=== PATIENT | female | born 1965 | race Caucasian/White ===

== ENCOUNTER → 2018-02-24 07:36 | Outpatient (CLI) | payer OTHER, SELFPAY ==
--- NOTE | 2018-02-24 07:39 | BI_ITS ---
MAMMOGRAPHY - BILATERAL SCREENING REASON FOR EXAM: Female, 52 years old. Routine annual screening examination. PERTINENT HISTORY: Non-contributory. TECHNIQUE: Digital bilateral breast yolanda (3D mammographic acquisition) in the CC and MLO projections. 2-D mediolateral oblique (MLO) and craniocaudad (CC) views of both breasts were obtained. CAD: Full Field Digital Mammography with Computer Added Detection was performed. COMPARISON: Comparison is made with prior study dated February 11, 2017 and January 28, 2016. FINDINGS: Breast Composition: The breasts are heterogeneously dense, which may obscure small masses. There are no dominant masses or suspicious calcifications. No other significant abnormalities are identified. There has been no significant change since the prior study. BI/SCREENING MAMM (CAD), BILAT IMPRESSION: Stable bilateral screening mammogram. Yearly follow-up mammogram recommended. (A) ASSESSMENT CATEGORY: BIRADS Category 1: Negative. A letter regarding these results will be sent to the patient by the facility within 30 days. Approximately 10% of breast cancers are not detected by mammography. A normal mammogram should not delay biopsy of a clinically suspicious abnormality. [id number] Electronically Signed: Lane Mendoza MD at 8:56 EDT Tel [phone], Service support ,
== END ==
PROVIDERS: Family Provider Internal Medicine; PCP Internal Medicine; Visit Provider Obstetrics & Gynecology
DX: Z12.31 Encounter for screening mammogram for malignant neoplasm of breast (principal)
CPT/HCPCS: 77063; 77067

== ENCOUNTER 2018-08-14 08:05 | Day surgery (SDC) | payer OTHER, SELFPAY ==
[2018-08-09 11:36] LABS: Hematocrit 39.7 % (37-47); Hemoglobin 13.3 g/dl (12.0-15.0); Mean Corp Hgb Conc 33.5 g/gl (32-36); Mean Corpuscular Volume 92.5 fL (81-99); Mean Platelet Vol. 11.7 fl (6.2-12.0); Platelet Count 193 K/mm3 (150-450); RBC Distribution Width CV 13.8 % (11.6-14.6); RBC Distribution Width SD 45.6 fl (35.1-43.9); Red Blood Count 4.29 M/mm3 (4.2-5.4); Scan Indicated on CBC? Y/N NO; White Blood Count 6.1 K/mm3 (4.4-11.0)
[2018-08-09 11:42] LABS: International Normalized Ratio 1.1; Prothrombin Time (Protime)PT. 13.9 SECONDS (11.7-14.9)
[2018-08-09 11:43] LABS: Partial Thromboplast Time 27.8 Seconds (24.1-36.2)
[2018-08-09 12:41] LABS: Pregnancy, Serum, hCG Quali. NEGATIVE Negative (0-9 Nonpreg)
[2018-08-09 14:10] LABS: EST Glomerular Filtration Rate 81 mL/min (>60); Est Glom Filt Rate - Afr Amer 98 mL/min (>60); Thyroid Stim Hormone (TSH) 1.45 uIU/mL (0.358-3.74)
--- NOTE | 2018-08-13 16:01 | PCM.HP.BLA ---
History and Physical Date of Admission: 08/14/18 Surgical History and Physical Jacqueline Bull, a 53 year old female 5 0 4 0 5, presents for LAVH/BSO on August 14, 2018 at 10:45. -- Menorrhagia; Submucous Fibroids -- heavy menses which began months ago. Jacqueline claims it started gradually It is located in the vagina. Jacqueline characterizes the quality hemorrhage. Severity is severe and worsening; u/s shows submucous fibroids; Additional comments are: bleeds thru clothing; recently lasted more than 2 weeks. MEDICATIONS HISTORY: Patient is also takin. Xyzal 5 mg Tablet, 1 tab daily 2. Maxalt 5 mg tablet, As Directed prn 3. Synthroid 25 mcg tablet, 1 PO QD 4. Inderal LA 60 mg capsule,extended release, daily prn 5. iron 325 mg (65 mg iron) tablet, One pill by mouth once a day with menses 6. Vitamin D2 50,000 unit capsule, One pill by mouth once a week ALLERGIES: penicillin, Penicillins and Intolerance-unknown Infections - ? chix. pox Illnesses - no serious past illnesses Accidents - no injuries of consequence Hospitalizations - Childbirth and see surgery Review of Systems: GENERAL - Denies fever, or chills SKIN - Denies skin changes EYES - Denies visual changes EARS - Denies difficulty hearing NOSE - Denies nasal congestion or bleeding MOUTH - Denies sore throat or difficulty swallowing NECK - Denies pain or swelling RESPIRATORY - Denies shortness of breath or wheezing CARDIOVASCULAR - Denies palpitations or chest pain GASTROINTESTINAL - Denies nausea, vomiting, diarrhea, constipation GENITOURINARY - Denies dysuria, frequency of urination, incontinence of urine MUSCULOSKELETAL - Denies joint or muscle pain NEUROLOGICAL - Denies localized numbness or weakness PSYCHIATRIC - Denies depression or anxiety ENDOCRINE - Denies heat or cold intolerance, weight loss or gain HEMATO-IMMUNOLOGIC - Denies excesive bleeding with cuts SOCIAL HISTORY: Alcohol Use - RARELY Smoking - denies smoking Diet - no particular diet Lifestyle - moderate stress lifestyle, active lifestyle and Exercise - active Seat Belt Use - always 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 Mother: depression. MENSTRUAL HISTORY: LMP Known?- DefiniteAmount/Duration - 6 days, Regularity - Regular, Frequency - monthly days, LMP - 07/28/18, Age Onset Menarche - 15 PAST PREGNANCIES: Total Pregnancies - 9; Full Term Pregnancies - 5; Premature - 0; Abortions, Induced - 2; Abortions, Spontaneous - 2; Ectopics - 0; Multiple Births - 0; Living Children - 5 SURGICAL HISTORY: 1. 03/22/2001 D and [place] ; Tiffanie Anderson M.D. - missed PHYSICAL EXAM BP- 132/84 Sitting, Right arm, regular cuff Weight- 151.63118 lbs Height- 64 inch BMI:25.97 CONSTITUTIONAL - NAD, well nourished, and well developed SKIN - No rash, lesions, or ulcers HEENT - Normocephalic, PERRLA, EOMI NECK - No nodes, no nuchal rigidity and thyroid normal size and texture LYMPH NODES - Palpation of lymph nodes in neck and groins within normal limits LUNGS - CTA x2 without wheezes, crackles or rales CARDIAC - Regular rate and rhythm without rubs, murmurs, or gallops BREAST - No dominant masses, no tenderness, no axillary adenopathy, no nipple discharge, no skin changes ABDOMEN - Without hepatosplenomegaly, distention, masses, rebound, or guarding; normal bowel sounds; no hernias EXTREMITIES - No edema or calf tenderness NEUROLOGICAL - Cranial nerves II-XII grossly intact PSYCHIATRIC - A and O to time, place, person, mood and affect DETAILED PELVIC EXAM External Genitial Vagina - non-tender without lesions Urethra/Urethral Meatus - non-tender Bladder - non-tender Vagina - vaginal espinal are pink and moist without loss of rugae and no evidence of atropy Cervix - without cervical motion tenderness and has normal size and features without evident lesions Uterus - multiparous size 6 cm & wt 75-125 g Adnexa - clear without masses or tenderness ASSESSMENT/PLAN: 1. Menorrhagia Discussed options for treatment at length including HTA versus LAVH/BSO. Since submucous fibroids present HTA not a good option. Plan LAVH/BSO. EMBx ok. Recent TSH normal. Discussed RBAs and all questions answered.
[2018-08-14] VITALS (13 sets, daily range): BP systolic 99–134; BP diastolic 56–96; PULSE 50–77; RESP 14–16; TEMP 36.1–37.4; O2SAT 94–100; BMI 26.9
[2018-08-14] MEDS: Scopolamine 1mg/72hr Patch 1 PATCH TRANSDERM. (07:00)
[2018-08-14 08:32] LABS: Internal QC Validated? YES +Cl - CLEAR BKGD; Pregnancy, Urine Negative Negative
[2018-08-14 09:05] LABS: Bedside Glucose 80 mg/dL (70-110)
[2018-08-14] MEDS: Acetaminophen 500 MG Tablet 1000 MG PO (09:13)
[2018-08-14] MEDS: Gabapentin 600 MG Tablet PO (09:14)
[2018-08-14] MEDS: Lactated Ringers 1,000 ML 40 ML IV (09:20)
--- NOTE | 2018-08-14 10:00 | HYST_PTH ---
PATIENT: DOC RANDALL [place] [facility] [place][id number] AGE/SX: 53/F ROOM: RE08/14/[address]: Dr. Julio Ly MD : [id number] BED: DIS: 08/15/2018 SPEC #: [id number] RECD: 08/14/18 14:35 STATUS: MURRAY AGUILARWade #: [id number] NICOLÁS: 08/14/18 10:[address]: Julio Ly DEPT: SURGICAL PATHOLOGY RECD BY: Dejah Vick ENTERED: 08/14/18 14:52 SP TYPE: HYSTERECT OTHR DR: Dr. Emani Vazquez MD Tissues: Uterus, NOS Procedures: Surgery Specimen Level V HEADER OPERATION: Hysterectomy, lap-assisted vaginal, salpingectomy, ERAS PRE-OP DIAGNOSIS: Menorrhagia TISSUE SUBMITTED: Uterus, bilateral ovaries and tubes MICROSCOPIC DIAGNOSIS Uterus, hysterectomy: Cervix - squamous metaplasia, nabothian cysts and mild chronic inflammation. Endometrium - transition endometrium. Myometrium - adenomyosis. Right fallopian tube - no pathologic change. Right ovary - corpus luteal cysts and corpora albicantia. Left fallopian tube - no pathologic change. Left ovary - hemorrhagic corpus luteal cysts and a single follicular cyst. AM:sheldon 08/15/18 MICROSCOPIC DESCRIPTION Slides are reviewed. GROSS DESCRIPTION Received in fixative is one container labeled with the patient's name and designated uterus, bilateral ovaries and tubes. The specimen consists of a hysterectomy specimen consisting of uterus with cervix and attached right fallopian tube and ovary and detached left fallopian tube and ovary. The uterus with cervix weighs 184 gm and measures 11 x 8 x 6 cm. The serosal surface is schroeder, glistening. A few instrumentation enriquez are noted. The ectocervical mucosa is unremarkable. The external os is slit-like in contour. The endocervical canal measures 3.5 cm in length and the endocervical mucosa is unremarkable. The triangular endometrial cavity measures 6 cm in length and up to 4 cm in width. The endometrium is schroeder, glistening without any mass lesion and measures 0.2 cm in thickness. Sections of the uterine wall reveal trabeculated cut surfaces suspicious for adenomyosis. The uterine wall measures up to 3 cm in thickness. The right fallopian tube measures up to 7 cm in length and up to 0.6 cm in diameter. The fimbrial end is identified. No tubo-ovarian adhesions are noted. The soft to cystic right ovary measures 3 x 2 x 1 cm. Sections reveal a hemorrhagic cyst measuring 1.2 cm in greatest dimension and the second cyst filled with clear fluid also measuring 1 cm in greatest dimension. The left fallopian tube measures 7 cm in length and up to 0.7 cm in diameter. It is similar appearance to right. The soft to cystic left ovary measures 2.5 x 2 x 1 cm. Sections reveal a hemorrhagic cyst measuring 2 cm in greatest dimension. A few smaller cysts filled with clear fluid are also noted measuring 0.3 cm in greatest dimension. Whipped Topping Mixer sections are submitted in ten cassettes as follows: 1 - anterior cervix, 2 - posterior cervix, 3 & 4 - anterior uterine wall, 5 & 6 - posterior uterine wall, 7 - right fallopian tube, 8 - right ovary, 9 - left fallopian tube, 10 - left ovary. / OSEAS:sheldon 08/14/18 TC:5 CPT: 75813
[2018-08-14] MEDS: Lidocaine/D5W 2,000 MG/250 ML IV.SOLN 2000 MG (10:13)
--- NOTE | 2018-08-14 10:14 | PCM.OP.BLANK ---
Operative Report Date of Procedure: 08/14/18 Surgeon: Julio Ly MD, [facility] Rework Machine Operator: GENARO Tineo Anesthesia: Kris Murillo CRNA Type of anesthesia: General endotracheal Preoperative Diagnosis: Menorrhagia and Submucous Fibroids Postoperative Diagnosis: Menorrhagia and Submucous Fibroids Procedure: Laparoscopic-Assisted Vaginal Hysterectomy and Bilateral Salpingoophrectomy Findings: 12 cm uterus with normal-appearing fallopian tubes and ovaries. Normal pelvis. Indications: This is a 53-year-old multiparous patient who is been having problems with extremely heavy menses. Ultrasound showed submucous fibroids. Conservative measures have not been helpful. Given this the patient desires that we proceed the above procedure. She has been counseled regarding the risk and indications of this procedure including the possibility of bleeding, infection, and injury to surrounding structures such as bowel bladder. All questions were answered. Procedure: Patient was taken to the operating room where after induction of general anesthesia she was placed in the dorsal lithotomy position and prepped and draped in the usual sterile fashion. A Carvajal catheter was placed. Anterior cervix was grasped with a tenaculum and anterior cervix circumscribed with cautery on a setting of 35 W coagulation. Anterior vaginal mucosa was undermined and a 4 x 4 raytec sponge was placed to identify the peritoneal reflection of the bladder intraperitoneally. Conn cannula was placed and attention was turned towards the laparoscopic portion of the procedure. Approximately 20 cc of half percent ropivacaine was injected subumbilically, suprapubically, and midway between. A 5 mm bladeless trocar was introduced subumbilically and intraperitoneal placement confirmed. CO2 insufflation was completed and, under direct visualization, a 5 mm bladeless trocar was introduced suprapubically. A 5 mm bladeless trocar was introduced midway between these 2 ports. Enseal was used to cauterize the infundibulopelvic ligaments to the level of the round ligament and the Raytec placed in the vagina was visualized with the peritoneum already opened over the sponge. Under direct visualization a narrow [place] was placed vaginally; CO2 gas was stopped and attention turned toward the vaginal hysterectomy portion of the procedure. The posterior aspect of the cervix was circumscribed with a knife and posterior peritoneum easily entered. Progressive bites were taken on either side of the uterine cervix and each pedicle ligated with 0 Vicryl suture. Superior pedicles were ligated ?2 with 0 Vicryl suture and sidewall pedicles were examined and oversewn where necessary with [id number] 0 Vicryl suture to achieve hemostasis. Posterior vaginal cuff was oversewn with running locked 0 Vicryl suture. Hemostasis was noted and peritoneum was closed in a pursestring fashion incorporating superior pedicles into the stitch. Vaginal cuff was then closed front to back with interrupted [id number] 0 Vicryl suture. Hemostasis was noted. Attention was turned toward the laparoscopic portion of the procedure. CO2 insufflation was completed and pedicles were examined and noted to be hemostatic. The pelvis was copiously irrigated with saline solution and right ureter was noted to peristalsis. Laparoscopic instruments with as much CO2 gas as possible was removed and skin incisions were closed with interrupted 4-0 Monocryl suture. Steri-Strips were placed across the incisions. Patient tolerated the procedure well was taken to recovery room in satisfactory condition; sponge instrument and needle counts were all reportedly correct. Estimated blood loss for the case was 200 cc. Cefotan 2 g IV was given prior to beginning the operative procedure. There were no apparent complications of the surgery. Specimen to pathology was uterus and bilateral fallopian tubes and ovaries.
--- NOTE | 2018-08-14 10:16 | DCINST_ITS ---
Discharge Diet: No Restrictions Discharge Activity: Return to Normal Activity, May Not Drive - while taking narcotic pain medications., May Shower May resume sexual activity in: 6-8 weeks Call your doctor if your incision/area has: Continuous Slow Oozing, Sudden Increased Bleeding, Increased Pain/ Swelling, Increased Redness, Foul Smelling Discharge Call your doctor if you observe: Fever of 101 or Higher, Inability to urinate, Inability to have a bowel movement, Using more than one pad per hour Allergies/Adverse Reactions: Allergies Penicillins Allergy (Verified 08/07/18 08:58) Rash Medications to take at Discharge Rizatriptan Benzoate [Maxalt] 10 mg PO .X1 PRN PRN 07/26/13 Levocetirizine Dihydrochloride [Xyzal] 5 mg PO DAILY 02/08/16 Levothyroxine Sodium [Levoxyl] 75 mcg PO DAILY 02/08/16 Propranolol HCl [Inderal LA] 60 mg PO DAILY PRN 02/08/16 Cyanocobalamin [Vitamin B12] 1,000 mcg PO DAILY@0800 08/07/18 Ergocalciferol [Vitamin D] 50,000 unit PO BRAMBILA 08/07/18 Iron Carbonyl [Feosol] 65 mg PO PRN PRN 08/07/18 Docusate Sodium [Colace] 100 mg PO BID PRN PRN #60 cap 08/14/18 Estradiol 1 mg PO DAILY #100 tab 08/14/18 Oxycodone [Oxyir] 5 mg PO Q6H PRN PRN 7 Days #20 tab 08/14/18 The following prescriptions were given: Oxycodone [Oxyir] 5 mg PO Q6H PRN PRN 7 Days #20 tab PRN Reason: Severe Pain (-07/19) Docusate Sodium [Colace] 100 mg PO BID PRN PRN #60 cap PRN Reason: Constipation Estradiol 1 mg PO DAILY #100 tab Primary Care Physician: Emani Vazquez MD [Primary Care Provider] - Test Results: Test results from this visit will be discussed in further detail at your follow- up appointment, if applicable. Please Follow Up With: Julio Ly MD When: 2-3 weeks
[2018-08-14] MEDS: Ropivacaine 0.5% 30 ML Vial (12:06)
[2018-08-14] MEDS: Ketorolac 30 MG/ML Syringe IV ×2 (13:52→20:04)
[2018-08-14] MEDS: Dextrose 5%-Lactated Ringers 1,000 ML 150 ML IV ×2 (16:05→22:17)
[2018-08-14] MEDS: Enoxaparin 30 MG/0.3 ML Syringe SC (18:13)
--- NOTE | 2018-08-14 22:21 | NUR.TO.PHY ---
pt drowsy at this time and unable to keep eyes open,not safe to sit at side of bed or stand.
[2018-08-15] MEDS: Ketorolac 30 MG/ML Syringe IV ×2 (02:24→07:29)
[2018-08-15 02:30] VITALS: BP 107/45; PULSE 78; RESP 16; TEMP 36.7; O2SAT 94
[2018-08-15] MEDS: Levothyroxine 75 MCG Tablet PO (06:10)
[2018-08-15] MEDS: oxyCODONE 5 MG Tablet PO (06:11)
[2018-08-15 06:58] LABS: Hematocrit 32.1 % (37-47); Hemoglobin 10.7 g/dl (12.0-15.0); Mean Corp Hgb Conc 33.3 g/gl (32-36); Mean Corpuscular Hgb 30.5 pg (27.0-32.0); Mean Corpuscular Volume 91.5 fL (81-99); Mean Platelet Vol. 11.9 fl (6.2-12.0); Platelet Count 157 K/mm3 (150-450); RBC Distribution Width CV 13.7 % (11.6-14.6); RBC Distribution Width SD 44.3 fl (35.1-43.9); Red Blood Count 3.51 M/mm3 (4.2-5.4); White Blood Count 6.5 K/mm3 (4.4-11.0)
[2018-08-15 07:03] LABS: Scan Indicated on CBC? Y/N NO
[2018-08-15 07:15] LABS: Creatinine, Serum 0.89 mg/dL (0.55-1.02); EST Glomerular Filtration Rate 71 mL/min (>60); Est Glom Filt Rate - Afr Amer 86 mL/min (>60); Estimated Creatinine Clearance 61.86 ml/min
[2018-08-15] MEDS: 0.9% NaCl Peripheral Flush Adult/Peds IV (07:29)
[2018-08-15 08:20] VITALS: O2SAT 94
[2018-08-15 08:29] VITALS: BP 98/70; PULSE 64; RESP 16; TEMP 36.8; O2SAT 97
--- NOTE | 2018-08-15 08:44 | PCM.PN.OB ---
Subjective: Patient without complaints. Tolerating diet well. Minimal vaginal bleeding. - Physical Exam Vital Signs Temp Pulse Resp BP Pulse Ox 98.3 F 64 16 98/70 97 08/15/18 08:29 08/15/18 08:29 08/15/18 08:29 08/15/18 08:29 08/15/18 08:29 Oxygen Flow Rate (L/min) 6 Oxygen Delivery Method Room Air Weight: 151 lb 14.376 oz Body Mass Index (BMI) 26.9 Intake and Output for Last 24 Hours 08/13/18 08/14/18 08/15/18 23:59 23:59 23:59 Intake Total 2411 / 2411 2338 / 2338 Output Total 400 / 400 1100 / 1100 Balance 2010 1238 / 1238 Laboratory Tests Past 24 Hrs 08/15/18 08/15/18 05:07 05:07 WBC 6.5 RBC 3.51 L Hgb 10.7 L Hct 32.1 L MCV 91.5 MCH 30.5 MCHC 33.3 RDW 13.7 RDW Differential 44.3 H Plt Count 157 MPV 11.9 Creatinine 0.89 Estim Creat Clear Calc 61.86 Est GFR (MDRD) Af Amer 86 Est GFR (MDRD) Non-Af 71 POC Glucose 08/14/18 08:56 POC Glucose 80 Wounds are clean, dry, intact. Good urine output. Hemoglobin and creatinine okay. Minimal vaginal bleeding. Medical Necessity - Tobacco Use Smoking Status: Never smoker Tobacco Use: Non-smoker Assessment/Plan Doing well postoperative day #1 status post LAVH/BSO. Will release to home with routine instructions.
[2018-08-15] MEDS: Estrogens,Conj. 0.625 MG Tablet PO (09:15)
[2018-08-15] MEDS: Loratadine 10 MG Tablet 5 MG PO (09:15)
[2018-08-15 12:37] VITALS: BP 105/79; PULSE 59; RESP 18; TEMP 36.7; O2SAT 100
== END 2018-08-15 12:47 | disposition home or self-care (01) ==
LOC: SDC 08:06 → AC 08:07 → MS3 10:35
PROVIDERS: Anesthesiology; Family Provider Internal Medicine; PCP Internal Medicine; Referring Provider Obstetrics & Gynecology; Visit Provider Obstetrics & Gynecology
PROC: 0UT9FZZ Resection of Uterus, Via Natural or Artificial Opening With Percutaneous Endoscopic Assistance (ICD-10-PCS; CPT 58552; principal; 2018-08-14 09:45)
DX: N87.9 Dysplasia of cervix uteri, unspecified (principal); N88.8 Other specified noninflammatory disorders of cervix uteri; N72 Inflammatory disease of cervix uteri; N80.0 Endometriosis of uterus; N83.12 Corpus luteum cyst of left ovary; N83.11 Corpus luteum cyst of right ovary; N83.291 Other ovarian cyst, right side; N83.02 Follicular cyst of left ovary; D64.9 Anemia, unspecified; E06.9 Thyroiditis, unspecified; Z79.899 Other long term (current) drug therapy
CPT/HCPCS: 58552; 36415; 81025; 82565; 82962; 84443; 84703; 85027; 85610; 85730; 86850; 86900; 88307; J7050; J7120; A4216; C1760; J0330; J2405

== ENCOUNTER → 2019-03-09 | Outpatient (CLI) | payer OTHER, SELFPAY ==
--- NOTE | 2019-03-09 07:16 | BI_ITS ---
MAMMOGRAPHY - BILATERAL SCREENING REASON FOR EXAM: Female, 53 years old. Routine annual screening examination. PERTINENT HISTORY: Non-contributory. TECHNIQUE: Digital bilateral breast yolanda (3D mammographic acquisition) in the CC and MLO projections. 2-D mediolateral oblique (MLO) and craniocaudad (CC) views of both breasts were obtained. CAD: Full Field Digital Mammography with Computer Added Detection was performed. COMPARISON: Comparison is made with prior study dated February 24, 2018 and February 11, 2017. FINDINGS: Breast Composition: The breasts are heterogeneously dense, which may obscure small masses. There are no dominant masses or suspicious calcifications. Stable small bilateral axillary lymph nodes. No other significant abnormalities are identified. There has been no significant change since the prior study. BI/SCREENING MAMM (CAD), BILAT IMPRESSION: Stable bilateral screening mammogram. Yearly follow-up mammogram recommended. (A) ASSESSMENT CATEGORY: BIRADS Category 2: Benign. A letter regarding these results will be sent to the patient by the facility within 30 days. Approximately 10% of breast cancers are not detected by mammography. A normal mammogram should not delay biopsy of a clinically suspicious abnormality. [id number] Electronically Signed: Lane Mendoza, at 9:22 EDT , Service support ,
== END | disposition home or self-care (01) ==
LOC: OPBI 07:14
PROVIDERS: Family Provider Internal Medicine; PCP Internal Medicine; Referring Provider Obstetrics & Gynecology; Visit Provider Obstetrics & Gynecology
DX: Z12.31 Encounter for screening mammogram for malignant neoplasm of breast (principal)
CPT/HCPCS: 77063; 77067

== ENCOUNTER → 2020-03-17 07:22 | Outpatient (CLI) | payer OTHER, SELFPAY ==
--- NOTE | 2020-03-17 07:28 | BI_ITS ---
MAMMOGRAPHY - BILATERAL SCREENING REASON FOR EXAM: Female, 55 years old. Routine annual screening examination. PERTINENT HISTORY: Non-contributory. TECHNIQUE: Digital bilateral breast eriberto (3D mammographic acquisition) in the CC and MLO projections. 2-D mediolateral oblique (MLO) and craniocaudad (CC) views of both breasts were obtained. CAD: Full Field Digital Mammography with Computer Added Detection was performed. COMPARISON: Comparison is made with prior study dated March 09, 2019 and February 24, 2018. FINDINGS: Breast Composition: The breasts are heterogeneously dense, which may obscure small masses. There are no dominant masses or suspicious calcifications. Stable small benign-appearing bilateral axillary lymph nodes. No other significant abnormalities are identified. There has been no significant change since the prior study. BI/SCREEN MAMM (CAD) W/ERIBERTO BILAT IMPRESSION: Stable bilateral screening mammogram. Yearly follow-up mammogram recommended. (A) ASSESSMENT CATEGORY: BIRADS Category 2: Benign. A letter regarding these results will be sent to the patient by the facility within 30 days. Approximately 10% of breast cancers are not detected by mammography. A normal mammogram should not delay biopsy of a clinically suspicious abnormality. [id number] Electronically Signed: Lane Mendoza, at 8:27 EDT , Service support ,
== END ==
PROVIDERS: PCP Internal Medicine; Referring Provider Obstetrics & Gynecology; Visit Provider Obstetrics & Gynecology
DX: Z12.31 Encounter for screening mammogram for malignant neoplasm of breast (principal)
CPT/HCPCS: 77063; 77067

== ENCOUNTER → 2020-11-18 12:48 | Outpatient (CLI) | payer SELFPAY ==
--- NOTE | 2020-11-18 12:54 | CT_ITS ---
STUDY: CARDIAC CALCIUM SCORING - CT CHEST REASON FOR EXAM: Female, 55 years old. Hyperlipidemia. RADIATION DOSAGE (If Supplied By Facility): CTDIvol = ( 12.19 ) mGy, DLP = ( 195.04 ) mGycm TECHNIQUE: Axial non-enhanced images were acquired through the heart for the sole purpose of measuring coronary artery calcium. Individualized dose optimization techniques were used for this CT. COMPARISON: None. FINDINGS: This portion of the report is being generated solely for the evaluation of noncoronary artery structures which have been assessed on plain another report. The visualized lungs are well expanded and free of infiltrate or mass. There is no pleural abnormality. The heart is normal in size. Normal pericardium. Normal visualized mediastinum and kassidy. Normal visualized pulmonary arteries and thoracic aorta. Minimal degenerative changes of the thoracic spine. Normal appearing upper abdomen. CT/Limited Chest CT w/CCTA IMPRESSION: No evidence of anatomic abnormality. Electronically Signed: Donavon Murillo DO at 21:56 EST Tel [phone], Service support ,
[2020-11-18 12:58] VITALS: BP 120/83; PULSE 55; RESP 16; O2SAT 99; BMI 28.0
--- NOTE | 2020-11-18 17:09 | CA.SCORE ---
Calcium Scoring Date of Study:: 11/18/20 Coronary Calcium Scoring: High-resolution Computed Tomographic imaging of the chest was performed on [11/18/2020], with particular attention paid to the coronary arteries. Images from the examination were analyzed for the presence and extent of coronary artery calcification , using coronary calcium quantification software. The patient tolerated the procedure well and there were no complications. The results of the coronary calcification analysis are provided below. - Findings Left Main (LM): 0 Left Anterior Descending (LAD): 0 Left Circumflex (LCX): 0 Right Coronary Artery (RCA): 0 Total Agatston Score: 0 Calcium Scoring Interpretation: 0 No identifiable atherosclerotic plaque. Very low cardiovascular disease risk. <5% chance of presence coronary artery disease A Negative Examination 1-10 Minimal Plaque burden. Significant coronary artery disease very unlikely. 11-100 Mild plaque burden. Likely mild or minimal coronary atherosclerosis. 101-400 Moderate plaque burden Moderate non-obstructive coronary artery disease highly likely. Over 400 Extensive plaque burden. High likelihood of at least one significant coronary stenosis (>50% diameter) Calcium Score: 0 Negative Examination - No significant atherosclerotic plaquing is noted. Full assessment of cardiac risk factors should include a complete assessment of all other risk factors.
== END ==
PROVIDERS: PCP Internal Medicine; Visit Provider Internal Medicine
DX: E78.5 Hyperlipidemia, unspecified (principal)
CPT/HCPCS: 75571; 76380

== ENCOUNTER 2020-12-25 12:30 | Outpatient (RCR) | payer OTHER, SELFPAY ==
--- NOTE | 2020-09-23 13:42 | HP.PTEVAL ---
Patient's Visit Information DOC RANDALL is a 55 year old F referred to Physical Therapy by Dr. Emani Vazquez MD with a diagnosis of R HIP BURSITIS AND TIGHT IT BAND. Date of Evaluation: 09/23/20 Physical Therapist: Eveline Hua PT, Cert MDT - Visit Plan Frequency: 2-3x /Week Duration: 4-6 Weeks Plan: KOTA HIP IT BAND STRETCHING/STRENGTHEING. LOW BACK/HIP US, E-STIM WITH MH, POSTURE CORRECTION/STRENGTHENING, INSTRUCTION IN APPROPRIATE BODY MECHANICS AND ACTIVITY MODIFICATIONS. DLS STARTING WITH A NEUTRAL SPINE PROGRESSING ROM TOLERATED. KOTA LE ROM, STRETCHING AND STRENGTHENING. HEP INSTRUCTION. CONSIDER AQUATIC THERAPY. 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 Present symptoms: LOW BACK PAIN. KOTA HIP PAIN. KOTA LATERAL THIGH AND KOTA CALF PAIN. INTERMITTENT RIGHT THIGH NUMBNESS. RIGHT LE PAIN > LEFT BUT LEFT LE WEAKNESS > RIGHT. Present since: ABOUT A YEAR AGO. Pain Scale: WORST 8/10, LEAST 2/10. Currently: 2/10, UNCHANGING. Commenced as a result of: NO APPARENT REASON. Symptoms at onset: LOW BACK/BACK OF HIPS - KOTA. Worse: SITTING IS THE WORST, LONG WALKS. Better: CHANGE OF POSITION. Disturbed sleep: YES. Previous history/Previous treatment: UNREMARKABLE. Treatment this episode: CHIROPRACTOR ONCE A WEEK FOR ABOUT A YEAR. CORTISONE SHOT BY DR. VAZQUEZ IN RIGHT HIP LAST WEEK THAT HELPED SOME. ALEVE ONCE A DAY FOR ABOUT 6 MONTHS. Coughing/sneezing/straining: NEGATIVE. Gait: DIFFICULTY INITIATING GAIT AFTER SITTING - HAS TO HOBBLE. GETS BETTER AFTER WALKING FOR A BIT. Difficulty initiating urinatin: NO. Accidents: NO. Unexplained weight loss: NO. Imaging: NONE. PMH: MIGRAINES, HYPOTHYROIDISM. Recent major surgery: NO. OTHER: PATIENT REPORTS SHE HAS BEEN FOAM ROLLING TO LOOSEN UP MUSCLES IN HER THIGHS. - Objective Sitting/Standing Posture: POOR. Lordosis: NORMAL. Lateral shift: NO. Relevant shift: N/A. Active Correction of posture: BETTER. Other Observations: INDEP GAIT AND TRANSFERS. Motor deficit: KOTA LE'S GROSSLY. Sensory deficit: KOTA LE LIGHT TOUCH SENSATION INTACT AND SYMMETRICAL. ROM deficit: KOTA LE'S WFL EXCEPT RIGHT HIP EXTERNAL ROTATION. Reflexes: 2/3 KOTA ACHILLES AND ABSENT RIGHT QUAD, 1/2 L QUAD. Dural Signs: POSITIVE LLE (FEELS PAIN IN RIGHT LB WITH TESTING). Lumbar mvmt loss: flex - MIN TO MOD. ext - MOD. R SG - MIN. L SG - MIN. INCREASED C/O LBP WITH LUMBAR FLEX AND EXT ROM TESTING. Core strength: POOR. Palpation: SORENESS REPORTED WITH PALPATION OF KOTA LUMBAR, BUTTOCK, LATERAL HIP AND THIGH REGIONS. OTHER: POSITIVE ALYSA RIGHT. TREATMENT: NEUROMUSCULAR REEDUCATION - RETRAINING OF MVMT AND POSTURE FOR SITTING, LYING AND STANDING ACTIVITIES. - Goals Goal 1:: DECREASE C/O LOW BACK AND KOTA LE SX'S. Goal Time Frame: 4-6 Weeks Goal 2:: IMPROVE SITTING, TRAVEL, WORK/HOMEMAKING, RISING FROM SITTING, SLEEP AND PROLONGED WALKING FUNCITON. Goal Time Frame: 4-6 Weeks Goal 3:: INSTRUCT IN PROPHYLAXIS Goal Time Frame: 4-6 Weeks - Anticipated Interventions Patient/Client Instruction: Educate patient on: Condition, Plan of Care, Risk Factors, Benefits of Fitness Program For the Purpose of:: To improve self management Therapeutic Exercise to Include: Strength training, Body mechanics, Postural training, Flexibilty training, Neuromotor development, In an aquatic setting, Dynamic Lumbar Stabilization For the Purpose of:: To decrease pain, To improve muscle performance and motor function, To increase tolerance to activity/condition/position, To improve ability of physical actions for home/community/work/leisure, To improve gait and locomotor functions TENS: Yes IF ES: Yes Cryotherapy (ice pack, ice massage): Yes Thermo therapy (hot pack): Yes Ultrasound (thermal/non thermal): Yes For the Purpose of:: To decrease pain, To decrease swelling/inflammation, To improve nutrient delivery to tissue Thank you for the opportunity to evaluate your patient. For Medicare and Medicare HMO plans, please review the plan of care and approve it. It will need to be FAXED BACK to us at [phone] for Medicare purposes. For Medicare only, by signing this I certify the plan of care. Please let me know if there are questions or concerns regarding this plan of care. Physician Signature: Date:
--- NOTE | 2020-10-23 13:03 | HP.PTREVAL ---
Dr. Emani Vazquez MD, It has been my pleasure to treat DOC RANDALL over the last 10 visits for R HIP BURSITIS AND TIGHT IT BAND. Please see the progress note below for an update on the physical therapy plan of care! Subjective: PATIENT REPORTS SHE CAN SIT MUCH BETTER NOW WITHOUT GETTING UNCOMFORTABLE. PATIENT REPORTS SHE WANTS TO CONTINUE PT. STATES SHE STILL HAS PAIN IN HER HIPS RIGHT > LEFT WITH WALKING AND PAIN ALMOST IMMEDIATELY UPON WALKING. CAN WALK ABOUT A MILE OR TWO WITHOUT PAYING FOR IT TOO MUCH BUT COULDN'T MOVE AFTER SHE TRIED 4 MILES. Objective/Function: PATIENT WAS SEEN TODAY FOR RE-ASSESSMENT OF PROGRESS TOWARD THE SET PT GOALS AND THE NEED FOR FURTHER PHYSICAL THERAPY VS READINESS FOR DISCHARGE. PATIENT IS MAKING SLOW PROGRES TOWARD ALL PT GOALS AND IS A GOOD CANDIDATE TO CONTINUE PT BASED ON PROGRESS MADE AND ROOM FOR FURTHER IMPROVEMENT. UPON EXAM TODAY: Motor deficit: KOTA LE'S GROSSLY 5/5. Sensory deficit: KOTA LE LIGHT TOUCH SENSATION INTACT AND SYMMETRICAL. ROM deficit: KOTA LE'S WFL EXCEPT RIGHT HIP EXTERNAL ROTATION. Dural Signs: POSITIVE LLE. Lumbar mvmt loss: flex - MIN. ext - MOD. R SG - NIL. L SG - NIL. INCREASED C/O LBP WITH LUMBAR FLEX AND EXT ROM TESTING. Core strength: POOR. Palpation: SORENESS REPORTED WITH PALPATION OF KOTA LUMBAR, BUTTOCK, LATERAL HIP AND THIGH REGIONS. OTHER: POSITIVE ALYSA RIGHT BUT IMPROVED ER ROM COMPARED TO INITIAL EVAL. ADDED BRIDGES TO HEP. Plan Plan: CONTINUE PT 2 TIMES A WEEK X 4 WEEKS WORKING TOWARD SAME GOALS. PROGRESS HEP. KOTA HIP IT BAND STRETCHING/STRENGTHEING. LOW BACK/HIP US, E-STIM WITH MH, POSTURE CORRECTION/STRENGTHENING, INSTRUCTION IN APPROPRIATE BODY MECHANICS AND ACTIVITY MODIFICATIONS. DLS STARTING WITH A NEUTRAL SPINE PROGRESSING ROM TOLERATED. KOTA LE ROM, STRETCHING AND STRENGTHENING. HEP INSTRUCTION. CONSIDER AQUATIC THERAPY. Goals Goal 1:: DECREASE C/O LOW BACK AND KOTA LE SX'S. Goal Time Frame: 4-6 Weeks Goal Progress: Progressing Goal 2:: IMPROVE SITTING, TRAVEL, WORK/HOMEMAKING, RISING FROM SITTING, SLEEP AND PROLONGED WALKING FUNCITON. Goal Time Frame: 4-6 Weeks Goal Progress: Progressing Goal 3:: INSTRUCT IN PROPHYLAXIS Goal Time Frame: 4-6 Weeks Goal Progress: Progressing Anticipated Interventions Patient/Client Instruction: Educate patient on: Condition, Plan of Care, Risk Factors, Benefits of Fitness Program For the Purpose of:: To improve self management Therapeutic Exercise to Include: Strength training, Body mechanics, Postural training, Flexibilty training, Neuromotor development, In an aquatic setting, Dynamic Lumbar Stabilization For the Purpose of:: To decrease pain, To improve muscle performance and motor function, To increase tolerance to activity/condition/position, To improve ability of physical actions for home/community/work/leisure, To improve gait and locomotor functions TENS: Yes IF ES: Yes Cryotherapy (ice pack, ice massage): Yes Thermo therapy (hot pack): Yes Ultrasound (thermal/non thermal): Yes For the Purpose of:: To decrease pain, To decrease swelling/inflammation, To improve nutrient delivery to tissue Please do not hesitate to contact me at [phone] by phone or if you have questions or concerns regarding this new plan of care! Sincerely, Eveline Hua, PT, Cert MDT
--- NOTE | 2020-12-25 13:16 | HP.PTDCSUM ---
It has been my pleasure to treat DOC RANDALL referred by Dr. Emani Vazquez MD, with the diagnosis of R HIP BURSITIS AND TIGHT IT BAND for a total of 21 visit(s). Discharge Date: 12/25/20 Please see the following information for a summary of their discharge status. Subjective: PATIENT REPORTS SHE FEELS STRONGER SINCE STARTING AQUATIC THERAPY BUT HER PAIN HAS NOT CONTINUED TO IMRPOVE. OVER-ALL SHE REPORTS BEING ABOUT 50% BETTER THAN BEFORE STARTING PT. R LOW BACK Pain Intensity (Out of 10): 2 R LATERAL THIGH Pain Intensity (Out of 10): 2 LEFT HIP Pain Intensity (Out of 10): 0 % Improvement: 50 Objective/Function: PATIENT WAS SEEN TODAY FOR RE-ASSESSMENT OF PROGRESS TOWARD THE SET PT GOALS AND THE NEED FOR FURTHER PHYSICAL THERAPY VS READINESS FOR DISCHARGE. PATIENT IS NO LONGER MAKING PROGRESS WITH PT AND IS APPROPRIATE FOR PHYSICIAN RE-ASSESSMENT AT THIS TIME. SHE IS AGREEABLE. UPON EXAM TODAY: Motor deficit: KOTA LE'S GROSSLY 5/5. Sensory deficit: KOTA LE LIGHT TOUCH SENSATION INTACT AND SYMMETRICAL. ROM deficit: KOTA LE'S WFL EXCEPT RIGHT HIP EXTERNAL ROTATION. Dural Signs: POSITIVE LLE. Lumbar mvmt loss: flex - NIL. ext - MIN. R SG - NIL. L SG - NIL. INCREASED C/O LBP WITH LUMBAR LSG AND EXT ROM TESTING. Core strength: POOR. Palpation: SORENESS REPORTED WITH PALPATION OF THE RIGHT HIP, BUTTOCK AND PROX LATERAL THIGH. OTHER: POSITIVE ALYSA RIGHT BUT IMPROVED ER ROM COMPARED TO INITIAL EVAL. ADDED SUPINE DYNAMIC HIP FLEX/ER/EXT EX KOTA TO HEP 3X8 EA Goal 1:: DECREASE C/O LOW BACK AND KOTA LE SX'S. Goal Progress: Not Progressing Goal 2:: IMPROVE SITTING, TRAVEL, WORK/HOMEMAKING, RISING FROM SITTING, SLEEP AND PROLONGED WALKING FUNCITON. Goal Progress: Not Progressing Goal 3:: INSTRUCT IN PROPHYLAXIS Goal Progress: Not Progressing Plan: D/C DUE TO LACK OF CONTINUED PROGRESS. PATIENT IS INDEP WITH BOTH LAND AND WATER EX PROGRAMS. SHE IS APPROPRIATE FOR AND AGREEABLE TO FOLLOW UP WITH DR. VAZQUEZ FOR CONTINUED PAIN. If there are questions or concerns regarding this patient's physical therapy, please feel free to call me at [phone]. Thank you for the referral of this patient. Sincerely, Eveline Hua, PT, Cert MDT
== END 2020-12-25 19:00 | disposition home or self-care (01) ==
LOC: PT 12:30
PROVIDERS: PCP Internal Medicine; Referring Provider Internal Medicine; Visit Provider Internal Medicine
DX: M76.31 Iliotibial band syndrome, right leg (principal)
CPT/HCPCS: 97014; 97035; 97110; 97112; 97113; 97140; 97162; 97164; 97530; G0283

== ENCOUNTER → 2021-05-29 07:04 | Outpatient (CLI) | payer OTHER, SELFPAY ==
[2020-11-18 12:58] VITALS: BMI 28.0
--- NOTE | 2021-05-29 07:06 | BI_ITS ---
MAMMOGRAPHY - BILATERAL SCREENING REASON FOR EXAM: Female, 56 years old. Routine annual screening examination. PERTINENT HISTORY: Non-contributory. TECHNIQUE: Digital bilateral breast eriberto (3D mammographic acquisition) in the CC and MLO projections. 2-D mediolateral oblique (MLO) and craniocaudad (CC) views of both breasts were obtained. CAD: Full Field Digital Mammography with Computer Added Detection was performed. COMPARISON: Comparison is made with prior study dated 03/17/2020 and 03/09/2019. FINDINGS: Breast Composition: The breasts are heterogeneously dense, which may obscure small masses. There are no dominant masses or suspicious calcifications. Stable small benign-appearing bilateral axillary lymph nodes. No other significant abnormalities are identified. There has been no significant change since the prior study. BI/SCRN MAMM (CAD)W/ERIBERTO BILAT IMPRESSION: Stable bilateral screening mammogram. Yearly follow-up mammogram recommended. (A) ASSESSMENT CATEGORY: BIRADS Category 2: Benign. A letter regarding these results will be sent to the patient by the facility within 30 days. Approximately 10% of breast cancers are not detected by mammography. A normal mammogram should not delay biopsy of a clinically suspicious abnormality. [id number] Electronically Signed: Lane Mendoza MD at 8:28 EDT , Service support ,
== END ==
PROVIDERS: PCP Internal Medicine; Referring Provider Obstetrics & Gynecology; Visit Provider Obstetrics & Gynecology
DX: Z12.31 Encounter for screening mammogram for malignant neoplasm of breast (principal)
CPT/HCPCS: 77063; 77067

== ENCOUNTER → 2022-12-06 | Outpatient (CLI) | payer OTHER, SELFPAY ==
--- NOTE | 2022-12-06 14:08 | BI_ITS ---
MAMMOGRAPHY - BILATERAL SCREENING REASON FOR EXAM: Female, 57 years old. Routine annual screening examination. PERTINENT HISTORY: Non-contributory. TECHNIQUE: Digital bilateral breast eriberto (3D mammographic acquisition) in the CC and MLO projections. 2-D mediolateral oblique (MLO) and craniocaudad (CC) views of both breasts were obtained. CAD: Full Field Digital Mammography with Computer Added Detection was performed. COMPARISON: Comparison is made with prior study dated 05/29/2021 and 03/17/2020. FINDINGS: Breast Composition: There are scattered areas of fibroglandular density. There are no dominant masses or suspicious calcifications. Stable small benign-appearing bilateral axillary lymph nodes. No other significant abnormalities are identified. There has been no significant change since the prior study. BI/SCRN MAMM (CAD)W/ERIBERTO BILAT IMPRESSION: Stable bilateral screening mammogram. Yearly follow-up mammogram recommended. (A) ASSESSMENT CATEGORY: BIRADS Category 2: Benign. A letter regarding these results will be sent to the patient by the facility within 30 days. Approximately 10% of breast cancers are not detected by mammography. A normal mammogram should not delay biopsy of a clinically suspicious abnormality. [id number] Electronically Signed: Lane Mendoza MD at 15:03 EST ,
== END | disposition home or self-care (01) ==
PROVIDERS: PCP Internal Medicine; Visit Provider Internal Medicine
DX: Z12.31 Encounter for screening mammogram for malignant neoplasm of breast (principal)
CPT/HCPCS: 77063; 77067

== ENCOUNTER → 2023-09-12 | Outpatient (CLI) | payer OTHER, SELFPAY ==
--- NOTE | 2023-09-12 19:33 | MRI_ITS ---
STUDY: MRI RIGHT KNEE REASON FOR EXAM: Female, 58 years old. right medial knee pain aCHING, WEAKNESS, SOMETIMES SHARP, MOSTLY INSIDE, PREV. SX FOR TORN MENISCUS TECHNIQUE: Standardized fat and water weighted pulse sequences were obtained in all 3 orthogonal planes. COMPARISON: None. FINDINGS: There is high-grade radial tearing and maceration of the body of the medial meniscus. A large horizontal tear is present in the middle one third aspect of the posterior horn of the medial meniscus as well. The anterior horn is intact but diffusely thinned.. There is diffuse, full thickness articular cartilage loss of the medial femorotibial compartment. There is mild reactive marrow edema of the medial femoral condyle and tibial plateau. Moderate strain edema is present in the gastrocnemius muscles. A large lobular Luu''s cyst is also present measuring 5.82 x 4.05 cm. Normal medial collateral ligamentous complex (MCL). Normal distal semimembranosus, gracilis and semitendinosus tendons. Normal lateral meniscus. There is diffuse, less than 50% thickness articular cartilage loss of the lateral femorotibial compartment. Normal lateral femoral condyle and tibial plateau. Normal proximal tibiofibular articulation. Normal lateral collateral (fibular) ligament. Normal popliteus tendon. Normal biceps femoris tendon. There is high-grade partial tearing of the anterior cruciate ligament with only a few intact fibers. Normal posterior cruciate ligament (PCL). Normal congruent patellofemoral articulation. Normal hyaline cartilage of the patellofemoral compartment. Normal medial and lateral patellar retinaculum. Normal quadriceps tendon. Normal patellar tendon. Normal Hoffa''s fat pad. A small joint effusion is present. The soft tissues are unremarkable. The otherwise visualized osseous structures are unremarkable. MRI/Lower Ext Joint Only (Routine) IMPRESSION: 1. High-grade tears of the body and posterior horn of medial meniscus. 2. High-grade partial tearing of the anterior cruciate ligament 3. Moderate strain edema is present in the gastrocnemius muscles. A large lobular Luu''s cyst is also present measuring 5.82 x 4.05 cm. Electronically Signed: Elgin Watkins MD at 10:44 EST ,
== END | disposition home or self-care (01) ==
LOC: MRI 13:30
PROVIDERS: PCP Internal Medicine; Referring Provider Internal Medicine; Visit Provider Internal Medicine
DX: M25.561 Pain in right knee (principal)
CPT/HCPCS: 73721

== ENCOUNTER → 2023-12-07 | Outpatient (CLI) | payer OTHER, SELFPAY ==
--- NOTE | 2023-12-07 09:19 | BI_ITS ---
MAMMOGRAPHY - BILATERAL SCREENING REASON FOR EXAM: Female, 58 years old. Routine annual screening examination. PERTINENT HISTORY: Non-contributory. TECHNIQUE: Digital bilateral breast eriberto (3D mammographic acquisition) in the CC and MLO projections. 2-D mediolateral oblique (MLO) and craniocaudad (CC) views of both breasts were obtained. CAD: Full Field Digital Mammography with Computer Added Detection was performed. COMPARISON: Comparison is made with prior study dated December 06, 2022 and May 29, 2021. FINDINGS: Breast Composition: There are scattered areas of fibroglandular density. There are no dominant masses or suspicious calcifications. Stable small benign-appearing lateral axillary lymph nodes. No other significant abnormalities are identified. There has been no significant change since the prior study. BI/SCRN MAMM (CAD)W/ERIBERTO BILAT IMPRESSION: Stable bilateral screening mammogram. Yearly follow-up mammogram recommended. (A) ASSESSMENT CATEGORY: BIRADS Category 2: Benign. A letter regarding these results will be sent to the patient by the facility within 30 days. Approximately 10% of breast cancers are not detected by mammography. A normal mammogram should not delay biopsy of a clinically suspicious abnormality. [id number] Electronically Signed: Lane Mendoza MD at 11:54 EST ,
== END | disposition home or self-care (01) ==
LOC: OPBI 09:19
PROVIDERS: PCP Internal Medicine; Referring Provider Internal Medicine; Visit Provider Internal Medicine
DX: Z12.31 Encounter for screening mammogram for malignant neoplasm of breast (principal)
CPT/HCPCS: 77063; 77067

== ENCOUNTER 2024-02-05 07:11 | Emergency (ER) | payer OTHER, SELFPAY ==
[2024-02-05 07:12] VITALS: BP 142/96; PULSE 93; RESP 18; TEMP 36.4; O2SAT 100; BMI 24.9
--- NOTE | 2024-02-05 07:31 | CT_ITS ---
STUDY: CT CERVICAL SPINE WITHOUT CONTRAST REASON FOR EXAM: Female, 58 years old. Trauma, neck pain RADIATION DOSAGE (If Supplied By Facility): CTDIvol = ( 14.76 ) mGy, DLP = ( 360.46 ) mGycm TECHNIQUE: High resolution transaxial imaging was performed without contrast material. Sagittal and coronal images were reconstructed. Individualized dose optimization techniques were used for this CT. COMPARISON: None FINDINGS: Normal craniovertebral junction. Normal anterior atlantoaxial articulation. Normal odontoid process. There is straightening of the normal cervical lordosis. There is grade 1 anterolisthesis at C4-5. There is no acute fracture. Normal vertebral bodies and posterior osseous elements. C2-3: Normal endplates. Normal disc height and morphology. There is facet spurring on the left. Normal central canal and intervertebral neuroforamina. C3-4: Normal endplates. Normal disc height and morphology. There is mild facet spurring on the left. Normal central canal and intervertebral neuroforamina. C4-5: Normal endplates. Normal disc height and morphology. There is facet spurring. Normal central canal and intervertebral neuroforamina. C5-6: Disc space narrowing. Spurring to the right. Mild facet spurring. Mild canal stenosis. Right foraminal narrowing. C6-7: Disc space narrowing. Disc bulge. Mild facet spurring. Moderate canal stenosis. Bilateral foraminal narrowing. C7-T1: Normal endplates. Normal disc height and morphology. Mild facet spurring. Normal central canal and intervertebral neuroforamina. Normal visualized soft tissue structures. CT/Spine Cervical without Contras IMPRESSION: Multilevel degenerative changes, as described above. Electronically Signed: Zaire Castillo MD at 9:14 EDT ,
--- NOTE | 2024-02-05 07:31 | CT_ITS ---
STUDY: CT FACIAL BONES WITHOUT CONTRAST REASON FOR EXAM: Female, 58 years old. Trauma attn R orbit RADIATION DOSAGE (If Supplied By Facility): CTDIvol = ( 29.38 ) mGy, DLP = ( 525.42 ) mGycm TECHNIQUE: The patient was scanned in a multi detector CT scanner. Sagittal and coronal images were reconstructed. Individualized dose optimization techniques were used for this CT. COMPARISON: None. FINDINGS: There is right frontal soft tissue swelling and injury. Normal orbital espinal and orbital contents. There is nondisplaced fracture of the nasal bone. Normal zygomatic arches. Normal mandible. Normal visualized paranasal sinuses. CT/Sinus/Facial Bone IMPRESSION: Nasal fracture. Soft tissue swelling and injury. Electronically Signed: Zaire Castillo MD at 9:06 EDT ,
--- NOTE | 2024-02-05 07:31 | CT_ITS ---
STUDY: CT BRAIN WITHOUT CONTRAST REASON FOR EXAM: Female, 58 years old. Trauma RADIATION DOSAGE (If Supplied By Facility): CTDIvol = ( 44.99 ) mGy, DLP = ( 779.24 ) mGycm TECHNIQUE: Transaxial CT imaging of the brain was performed without administration of intravenous contrast material. Individualized dose optimization techniques were used for this CT. COMPARISON: No relevant priors. FINDINGS: There is right frontal soft tissue swelling and injury. There is nasal bone fracture. Normal calvarium. Normal size ventricles and extra-axial spaces for the patient''s age. Normal white matter tracts of the cerebral hemispheres. Normal basal ganglia and thalami. Normal brainstem. Normal cerebellum. There is no intracranial hemorrhage. There are no findings of an acute ischemic infarction. Normal visualized paranasal sinuses. CT/Brain/Head without Contrast IMPRESSION: Normal unenhanced CT scan of the brain. Soft tissue swelling. Nasal fracture. Electronically Signed: Zaire Castillo MD at 9:03 EDT ,
--- NOTE | 2024-02-05 07:34 | EX.ED.GENINJ ---
HPI History of Present Illness Chief Complaint: Head Injury Informant: patient, spouse/S.O. and PCP Onset/Context/Timing Onset: Today (Just prior to arrival) Mechanism/Context: Fall Narrative Narrative: Healthy 58-year-old female was on the porch stoop and was pulled off by their dog, she was holding the leash, falling 3 to 4 feet to the ground headfirst, sustaining a large laceration to her forehead, she has severe pain in her neck, and less pain in her face. Did not lose consciousness. No vomiting. Feels like her vision is normal. No diplopia. No other injuries. No numbness, tingling, weakness in her arms or legs or inability to walk. Tetanus Immunization: <5 years [facility] Medical History (Updated 02/05/24 @ 11:[address] Zaire Sanders MD) Hypothyroidism Migraines Home Medications rizatriptan 10 mg tablet 10 mg PO .X1 PRN PRN Migraine Symptoms 07/26/13 [History Last Taken Unknown] Levocetirizine Dihydrochloride [Xyzal] 5 mg PO DAILY 02/08/16 [History Last Taken Unknown] levothyroxine 75 mcg tablet (Levoxyl) 75 mcg PO DAILY 02/08/16 [History Last Taken Unknown] propranolol 60 mg capsule,24 hr,extended release 60 mg PO DAILY PRN Migraine Symptoms 02/08/16 [History Last Taken Unknown] cyanocobalamin (vitamin B-12) 500 mcg tablet 1,000 mcg PO DAILY@0800 08/07/18 [History Last Taken Unknown] ergocalciferol (vitamin D2) 1,250 mcg (50,000 unit) capsule (Vitamin D2) 50,000 unit PO BRAMBILA 08/07/18 [History Last Taken Unknown] iron, carbonyl 45 mg tablet (Feosol) 65 mg PO PRN PRN menses 08/07/18 [History Last Taken Unknown] docusate sodium 100 mg capsule 100 mg PO BID PRN PRN Constipation #60 caps 08/14/18 [Rx Last Taken Unknown] estradiol 1 mg tablet 1 mg PO DAILY #100 tabs 08/14/18 [Rx Last Taken Unknown] cephalexin 500 mg capsule 500 mg PO TID #15 CAPSULES 02/05/24 [Rx Last Taken Unknown] Allergy/AdvReac Type Severity Reaction Status Date / Time Penicillins Allergy Rash Verified 02/05/24 07:12 Social History Smoking Status: Never smoker ROS ROS ED Constitutional Constitutional ED: Denies chills or fever(s) Eyes Eyes: Denies change in vision or diplopia ENT ENT ED: Reports facial pain; Denies ear pain or rhinorrhea Cardiovascular Cardiovascular: Denies chest pain or palpitations Respiratory/Chest Respiratory/Chest: Denies cough or dyspnea Gastrointestinal Gastrointestinal: Denies abdominal pain, diarrhea, melena, nausea or vomiting Genitourinary Genitourinary ED: Denies dysuria or hematuria Musculoskeletal Musculoskeletal: Reports neck pain; Denies back pain or extremity pain Integumentary Reports Abrasions and laceration; Denies abscess or rash Neurologic Neurologic: Reports headache(s); Denies confusion, paresthesias or weakness EXAM Physical Exam Const Vital Signs: 02/05/24 07:12 02/05/24 07:29 02/05/24 09:11 Temperature 97.6 F L Temperature Source Temporal Pulse Rate 93 70 Respiratory Rate 18 16 Respiratory Effort Normal Respiratory Depth Normal Respiratory Pattern Normal Blood Pressure 142/96 H 130/89 H Blood Pressure Mean 111 102 Pulse Ox 100 99 Oxygen Delivery Method Room Air Room Air Room Air 02/05/24 11:00 Temperature Temperature Source Pulse Rate 67 Respiratory Rate 16 Respiratory Effort Respiratory Depth Respiratory Pattern Blood Pressure 129/83 H Blood Pressure Mean 98 Pulse Ox 99 Oxygen Delivery Method Positive well nourished and well developed General Appearance ED: well developed and NAD HEENT Reports TM's clear and nasal mucous membranes and turbinates normal HEENT Narrative: Laceration to the edge of the right nose ala. Large curvilinear laceration to the forehead, it is full-thickness and clean-appearing with a good amount of blood present, + venous active bleeding (nothing arterial), easily controlled as long as constant pressure is placed. No obvious crepitance or depression. No other signs of head trauma. Face and Sinus: facial tenderness bilateral (No mid facial instability. Mild tenderness in both maxillary bones without infraorbital hypoesthesia, mild tenderness both superior orbital brim's, worse on the right.) Tympanic Membrane ED: Yes TM's clear Eyes PERRL and EOMs intact bilaterally General Eye ED: Yes other Other Details: Small punctate subconjunctival bleed right eye just below the cornea. No other signs of globe trauma. No enophthalmos or proptosis. Visual Acuity: other Other Details: no entrapment or pain with extraocular movements Neck Neck Narrative: Tender mid and lower neck. Placed in c-collar upon examination. General: tenderness Chest Wall inspection of chest normal and palpation of chest normal Chest: symmetrical chest wall rise; Negative for crepitus or tenderness Resp normal respiratory effort and clear to auscultation bilaterally Percussion: other equal BS bilat Cardio no murmurs Rate: regular rate Rhythm: regular rhythm GI normal to inspection, nondistended, normoactive bowel sounds, soft to palpation and non-tender Back/Spine normal ROM Cervical Spine: cervical spine tenderness Cervical Spine Tenderness Details: diffuse (Mostly mid and lower. No step-off.) Thoracic Spine / Upper Back: Negative for thoracic spinal tenderness Lumbar Spine / Lower Back: Negative for lumbar spinal tenderness Extremity normal to inspection and full ROM General Extremety ED: Negative for tenderness Neuro oriented x3, CN's II-XII intact bilaterally, moves all extremities, no focal motor deficits and no sensory deficits noted [place] Coma Scale: document GCS findings Spontaneous Obeys Commands Oriented 15 Sensorium / Orientation: awake and alert Psych mental status grossly normal and thought process normal Skin no wounds Lesions: no lesions Rashes: no rashes PROC Procedures Lacerations nose R ala: Length: 1 cm Depth: Sub Q (superficial; no cartilage visible) Shape: Flap Prep: Sterile Conditions and Chlorhexadine (scrubbed) Laceration repair: Lidocaine with epi (1%, 0.5cc), Local and Skin sutures Number of Sutures/Ashleigh: 3 Suture Information: Ethilon, Simple and 6-0 forehead: Length: 9 cm Depth: Sub Q Shape: Linear (curved) Prep: Sterile Conditions and Chlorhexadine Laceration repair: Irrigated (30 cc), Lidocaine with epi (1%, 7cc total, including touch-up anesthetic), Local and Skin sutures Number of Sutures/[place]: 12 Suture Information: Simple (#6 black Ethilon, #6 blue Prolene) and 6-0 (all) MDM MDM MDM Narrative Medical decision making narrative: Given the patient's brisk venous oozing, I anesthetized her scalp laceration with 1% lidocaine with epinephrine to provide hemorrhage control, as well as cleaning the wound and applying compression with an Ilya bandage while we sent her to CT. Also anesthetized and repaired the nasal laceration which was a small flap, there was no tissue loss in either of the lacerations. There is no cartilage exposed for the nose but it was palpable just beneath the surface of the skin. Also with repairing the facial laceration after obtaining CTs, she has involvement of the forehead just into the hairline with about half of the laceration, so I switched over to Prolene since it was easier to see in her black-colored hair, and it was troublesome to maintain an absolute sterile field due to the amount of hair near the laceration. For this reason, I am putting her on 5 days of prophylactic cephalexin although it is not contaminated grossly and I think the chances of infection are relatively low, we did obtain CT of the head, face, and cervical spine. On my interpretation all of these images show an acute nondisplaced nasal bone fracture but no other fractures or intracranial injury. Radiology is in agreement I agree with their interpretation. The patient is doing well clinically and we will discharge her home for close outpatient follow-up in 5-7 days for reevaluation and suture removal. We did do a CBC, her blood counts are stable and her vital signs remained stable throughout her ED visit. Lab Data Attestation: I reviewed the patient's lab results. Labs: Laboratory Results - last 24 hr 02/05/24 07:45 WBC 5.0 RBC 4.21 Hgb 13.6 Hct 38.7 MCV 91.9 MCH 32.3 H MCHC 35.1 RDW Std Deviation 40.8 RDW Coeff of Jame 12.1 Plt Count 146 L MPV 11.0 Immature Gran % (Auto) 0.400 Neut % (Auto) 53.7 Lymph % (Auto) 36.1 [place] % (Auto) 8.4 Eos % (Auto) 1.0 Baso % (Auto) 0.4 Absolute Neuts (auto) 2.7 Absolute Lymphs (auto) 1.80 Nucleated RBC % 0 Radiography Diagnostic Testing: Clinical Impression(s) from Imaging Studies Brain CT 02/05/24 07:31 IMPRESSION: Normal unenhanced CT scan of the brain. Soft tissue swelling. Nasal fracture. Electronically Signed: Zaire Castillo MD at 9:03 EDT , Cervical Spine CT 02/05/24 07:31 IMPRESSION: Multilevel degenerative changes, as described above. Electronically Signed: Zaire Castillo MD at 9:14 EDT , Facial/Sinus 02/05/24 07:31 IMPRESSION: Nasal fracture. Soft tissue swelling and injury. Electronically Signed: Zaire Castillo MD at 9:06 EDT , Management Discussion w/another healthcare provider: PCP Discharge Plan Triage Chief Complaint: Head Injury ED Provider: Zaire Sanders Dx/Rx/DC Orders Clinical Impression: Closed fracture of nasal bone, Forehead laceration, Closed head injury without loss of consciousness, Laceration of nose, Fall from slip, trip, or stumble Instructions: ED Nose Fracture, with X-Ray, ED Head Injury (Adult), ED FACIAL LACERATION Suture Tape Prescriptions: New cephalexin [cephalexin] 500 mg capsule 500 mg PO TID Qty: 15 0RF No Action rizatriptan 10 MG tablet 10 mg PO .X1 PRN PRN (Reason: Migraine Symptoms) levothyroxine [Levoxyl] 75 MCG tablet 75 mcg PO DAILY Levocetirizine Dihydrochloride [Xyzal] 5 MG tablet 5 mg PO DAILY propranolol 60 MG capsule 60 mg PO DAILY PRN (Reason: Migraine Symptoms) cyanocobalamin (vitamin B-12) 500 MCG tablet 1,000 mcg PO DAILY@0800 ergocalciferol (vitamin D2) [Vitamin D2] 50,000 UNIT capsule 50,000 unit PO BRAMBILA iron, carbonyl [Feosol] 45 MG capsule 65 mg PO PRN PRN (Reason: menses) docusate sodium 100 MG capsule 100 mg PO BID PRN PRN (Reason: Constipation) Qty: 60 1RF estradiol 1 MG tablet 1 mg PO DAILY Qty: 100 4RF Primary Care Provider: Emani Vazquez Referrals: Emani Vazquez MD [Primary Care Provider] - 7 Days for suture removal (Tuesday this coming week would be reasonable day for follow up; if that does not work for your doctor) Disposition Disposition: Home, Self Care
[2024-02-05] MEDS: fentaNYL 100 MCG/2 ML Ampul 50 MCG IV (07:43)
[2024-02-05] MEDS: Lidocaine 1% /Epi 1:100 (20ml) 20 ML Vial 10 ML INFILT (07:45)
[2024-02-05] MEDS: Ondansetron 4 MG/2 ML Vial IV (07:45)
[2024-02-05 07:50] LABS: Absolute Neutrophil Count 2.7 X10^3/uL (2.0-7.7); Basophil# 0.02 X10^3/uL; Basophil% 0.4 % (0-1); Eosinophil# 0.05 X10^3/uL; Hematocrit 38.7 % (37-47); Hemoglobin 13.6 g/dL (12.0-15.0); Lymphocyte % 36.1 % (19-41); Mean Corp Hgb Conc 35.1 g/dL (32-36); Mean Corpuscular Hgb 32.3 pg (27.0-32.0); Mean Corpuscular Volume 91.9 fL (81-99); Monocyte# 0.42 X10^3/uL; Monocyte% 8.4 % (0-10); NRBC Flagged by Analyzer 0 % (0-5); Neutrophil # 2.67 X10^3/uL (2.7-7.7); Neutrophil % 53.7 % (47-70); Platelet Count 146 K/mm3 (150-450); RBC Distribution Width CV 12.1 % (11.6-14.6); RBC Distribution Width SD 40.8 fl (35.1-43.9); Red Blood Count 4.21 M/mm3 (4.2-5.4)
[2024-02-05 09:11] VITALS: BP 130/89; PULSE 70; RESP 16; O2SAT 99
[2024-02-05 11:00] VITALS: BP 129/83; PULSE 67; RESP 16; O2SAT 99
[2024-02-05 12:15] VITALS: BP 129/83; PULSE 67; RESP 16; TEMP 36.7; O2SAT 99
== END 2024-02-05 13:41 | disposition home or self-care (01) ==
PROVIDERS: Emergency Provider Emergency Medicine; PCP Internal Medicine; Visit Provider Emergency Medicine
DX: S02.2XXA Fracture of nasal bones, initial encounter for closed fracture (principal); S01.81XA Laceration without foreign body of other part of head, initial encounter; S01.21XA Laceration without foreign body of nose, initial encounter; H11.31 Conjunctival hemorrhage, right eye; W17.89XA Other fall from one level to another, initial encounter; Y93.K1 Activity, walking an animal
CPT/HCPCS: 12011; 12004; 70450; 70486; 72125; 85025; 90715; 96374; 96375; 99284; A4216; J2405

== ENCOUNTER 2024-02-15 08:00 | Outpatient (RCR) | payer OTHER, SELFPAY ==
--- NOTE | 2023-11-23 10:17 | HP.PTEVAL ---
Patient's Visit Information Visit Information Visit Information: DOC RANDALL is a 58 year old F referred to Physical Therapy by Dr. Valerio Gallagher MD with a diagnosis of . Date of Evaluation: Physical Therapist: Danilo Ghosh PT, Cert MDT, OCS Anticipated Interventions Text: Thank you for the opportunity to evaluate your patient. For Medicare and Medicare HMO plans, please review the plan of care and approve it. It will need to be FAXED BACK to us at [phone] for Medicare purposes. For Medicare only, by signing this I certify the plan of care. Please let me know if there are questions or concerns regarding this plan of care. Physician Signature: Date:
--- NOTE | 2023-11-23 10:56 | HP.PTEVAL_ITS ---
Patient's Visit Information Visit Information Visit Information: DOC RANDALL is a 58 year old F referred to Physical Therapy by Dr. Valerio Gallagher MD with a diagnosis of SPINAL STENOSIS LUMBAR. Date of Evaluation: 11/23/23 Physical Therapist: Danilo Ghosh, PT, Cert MDT, OCS Visit Plan Frequency: 2x /Week Duration: 4 Weeks Plan: * s/p foraminotomy L3-4 right ,and left foraminotomy L4-5 on left on 11/01/23* *Plan to undergo right surgery knee for meniscus December * PT INTERVTIONS DLS ,POSTURAL EX'S ,FLEXABLITY ,GRADED LUMABR ROM AND POSTURE/BODY MECHANICS Subjective Subjective: This 58 y/o female presents to physical therapy with spinal stenosis Lumbar. Patient underwent s/p foraminotomy L3-4 right ,and left foraminotomy L4- 5 on left on 11/01/[address] Gallagher. Patient has had lumbar radicular with radicular symptoms in legs ~ 5years which progressively worse. Tried PT had MRI showed stenosis and tried pain management with epidural injection. Patient d/c next day post surgery. Initially no BLT and seen Dr 11/18/23 removed radha and return to normal activities. Patient has some discomfort but has no radicular symptoms in legs. Aggravating factors sitting and alleviating factors walking and standing. Patient medication oxycodone. Difficulty with bending. Denies paresthesia/tingling. Coughing/sneezing-.Bowel/bladder -. Sleeping good. Patient condition affects QOL and function/job demand's. Although patient plans to have knee surgery for meniscus . Patient has ACL tear. But based on x-rays possible TKR in future. SOCIAL: VOCATION: [employer] Pain Bilateral Back: Pain Intensity (Out of 10): 3 Pain Intensity Range: 10 Right Knee: Pain Intensity (Out of 10): 4 Pain Intensity Range: 10 Objective Objective: POSTURE: mild forward posture NEURO: denies paresthesia/tingling ,reflexes L3-4,L4-5,L5-S1 Right 1/3,Left 2/3 GAIT: reciprocal pattern SKIN: incision well approximate PALAPTION: tender paraspinals /erector spinalis FLEXABILITY: hamstrings min tight MMT: quads/hams right 4-/5,left 4/5 ,hip flexion right 4-/5 ,left 3+/5 ,ankle 4/5 Special Tests L/S Slump test left side: Negative L/S Slump test right side: Negative L/S Left Straight Leg Raise: Negative L/S Right Straight Leg Raise: Negative Balance/Special Test Scores Oswestry Low Back Score: 19 Goals Goal 1:: Patient to be I with HEP for back surgery Goal Time Frame: 4-6 Weeks Goal 2:: Patient to be demonstrate 75 % with improved function and less pain Goal Time Frame: 4-6 Weeks Goal 3:: Patient to improve lumbar ROM for function of recovery for ADLS Goal Time Frame: 4-6 Weeks Goal 4:: Patient to improve back oswestry score by 5 points to improve QOL Goal Time Frame: 4-6 Weeks Goal 5:: Patient increase strength BLE to 4/5 to improve function Goal Time Frame: 4-6 Weeks Rehabilitation Potential Physical Therapy Diagnosis: This patient under went s/p lumbar foraminotomy with decrease ROM ,weakness legs ,some pain unable to RTW and decrease gait thus benefit from skilled PT. Rehabilitation Potential: Good Anticipated Interventions Patient/Client Instruction: Educate patient on: Condition and Plan of Care For the Purpose of:: To decrease pain, To increase ROM, To improve muscle performance and motor function, To improve ability to perform ADL's, To increase tolerance to activity/condition/position, To improve ability of physical actions for home/community/work/leisure, To improve health of tissue, To decrease soft tissue restriction, To increase flexibility/ROM and To reduce risk of recurrence Therapeutic Exercise to Include: Strength training, Body mechanics, Postural training, Flexibilty training and Dynamic Lumbar Stabilization For the Purpose of:: To decrease pain, To increase ROM, To improve muscle performance and motor function, To improve ability to perform ADL's, To increase tolerance to activity/condition/position, To improve ability of physical actions for home/community/work/leisure, To improve health of tissue, To decrease soft tissue restriction and To increase flexibility/ROM Text: Thank you for the opportunity to evaluate your patient. For Medicare and Medicare HMO plans, please review the plan of care and approve it. It will need to be FAXED BACK to us at [phone] for Medicare purposes. For Medicare only, by signing this I certify the plan of care. Please let me know if there are questions or concerns regarding this plan of c are. Physician Signature: Date:
--- NOTE | 2023-12-20 09:52 | HP.PTEVAL2 ---
Patient's Visit Information Visit Information Visit Information: DOC RANDALL is a 58 year old F referred to Physical Therapy by Dr. Valerio Gallagher MD with a diagnosis of other medial meniscus current injury knee , Osteoarthritis right knee ,s/p arthroscopic surgery of right knee Date of Evaluation: 12/20/23 Physical Therapist: Danilo Ghosh, PT, Cert MDT, OCS Visit Plan Frequency: 2x /Week Duration: 4 Weeks Plan: PT INTERVENTIONS ROM KNEE ,FLEXABILITY QUADS/HAMS, STRENGTHENING QUADS/HAMS/HIP ,FUNCTIONAL STRENGTHENING ,AND NUSTEP/BIKE Subjective Subjective: This 58 y/o female presents to physical therapy s/p post arthroscopic surgery medial meniscectomy on December [address] Ashley Berry at [facility]. Patient was d/c with crutches with WBAT. Patient also right knee DJD medial aspect. RTD the RESPIRATORY ASSISTANT. Stated possible TKA in future but need strengthening. Patient had some edema but improving. Denies paresthesia/tingling-. Patient sleeping okay. Patient doing one steps at time. Prior to surgery had MRI showed meniscus tear. Patient is unable to squat and kneeling ,difficulty with stairs and gait limping and becomes sore but has been active. Patient has stiffness but activity increases with soreness Patient has stopped ice after 1 st week. Patient condition affects QOL and function . Patient goals to decrease return to horse back riding ,bike and walking SOCAIL: VOCATION: [employer] Pain Right Knee: Intensity: 2 Pain Intensity Range: 10 Objective Objective: POSTURE: WFL ,knee slightly flexed right EDEMA: ( joint line ) 40 CM2 NEURO: denies paresthesia/tingling SKIN: incision well approximate mild bruising sutures intact AROM: 5-115 supine knee flexion right knee GAIT: reciprocal pattern antalgic gait right side MMT: ( peak force) Quads 23.8 ,hamstrings 21.9 ,hip flexion 19.8 ,hip abd 17.5 Goals Goal 1:: Patient to be I with HEP for knee Goal Time Frame: 4-6 Weeks Goal 2:: Patient to improve AROM 0-125 degrees to improve stairs alternating Goal Time Frame: 6-8 Weeks Goal 3:: Patient to normalize gait Goal Time Frame: 4-6 Weeks Goal 4:: Patient to improve peak force quads/hams/hip by 5-10# to improve strength Goal Time Frame: 4-6 Weeks Goal 5:: Patient to improve LFES score by 5-10 points to improve function Goal Time Frame: 4-6 Weeks Rehabilitation Potential Physical Therapy Diagnosis: This patient underwent s/p arthroscopic medial meniscectomy with ROM ,strength antalgic gait thus benefit from skilled PT Rehabilitation Potential: Good Anticipated Interventions Patient/Client Instruction: Educate patient on: Condition and Plan of Care For the Purpose of:: To decrease pain, To increase ROM, To improve muscle performance and motor function, To improve ability to perform ADL's, To increase tolerance to activity/condition/position, To improve ability of physical actions for home/community/work/leisure, To improve health of tissue, To decrease soft tissue restriction, To increase flexibility/ROM, To improve endurance and To reduce risk of recurrence Therapeutic Exercise to Include: Strength training, Endurance training, Postural training, Flexibilty training and Active ROM For the Purpose of:: To decrease pain, To increase ROM, To improve muscle performance and motor function, To improve ability to perform ADL's, To increase tolerance to activity/condition/position, To improve ability of physical actions for home/community/work/leisure, To improve gait and locomotor functions and To increase flexibility/ROM text: Thank you for the opportunity to evaluate your patient. For Medicare and Medicare HMO plans, please review the plan of care and approve it. It will need to be FAXED BACK to us at [phone] for Medicare purposes. For Medicare only, by signing this I certify the plan of care. Please let me know if there are questions or concerns regarding this plan of care. Physician Signature: Date:
--- NOTE | 2024-02-15 09:09 | HP.PTDCSUM ---
Discharge Summary D/C summary: It has been my pleasure to treat DOC RANDALL referred by Dr. Valerio Gallagher MD, with the diagnosis of SPINAL STENOSIS LUMBAR for a total of 13 visit(s). Discharge Date: 02/15/24 Please see the following information for a summary of their discharge status. Subjective Subjective: Patient fell and had laceration hit head required sutures Ready for d/c Doing great Pain Bilateral Back: Pain Intensity (Out of 10): 0 Right Knee: Pain Intensity (Out of 10): 0 Overall Improvement % Improvement: 80 Objective Objective/Function: POSTURE: mild forward posture NEURO: denies paresthesia/tingling ,reflexes L3-4,L4-5,L5-S1 Right 2/3,Left 2/3 GAIT: reciprocal pattern SKIN: INTACT PALAPTION: unremrkable FLEXABILITY: hamstrings min tight MMT: quads/hams right 4-/5,left 4/5 ,hip flexion right 4-/5 ,left 3+/5 ,ankle 4/5 Goals Goal 1:: Patient to be I with HEP for back surgery Goal Progress: Goal Met Goal 2:: Patient to be demonstrate 75 % with improved function and less pain Goal Progress: Goal Met Goal 3:: Patient to improve lumbar ROM for function of recovery for ADLS Goal Progress: Goal Met Goal 4:: Patient to improve back oswestry score by 5 points to improve QOL Goal Progress: Goal Met Goal 5:: Patient increase strength BLE to 4/5 to improve function Goal Progress: Goal Met Plan Plan: D/C D/C Information d/c sentence: If there are questions or concerns regarding this patient's physical therapy, please feel free to call me at [phone]. Thank you for the referral of this patient. Sincerely, Danilo Ghosh, PT, Cert MDT, OCS Balance/Gait/Functional tests Balance/Special Test Scores Oswestry Low Back Score: 0 Lower Extremity Functional Score: 32 Improvement % Improvement: 80
--- NOTE | 2024-02-15 09:22 | HP.PTDCS(2) ---
Discharge Summary D/C Summary: It has been my pleasure to treat DOC RANDALL referred by Dr. Valerio Gallagher MD, with the diagnosis of OTHER TEAR OF MEDIAL MENISCUS ,OA RIGHT KNEE ,S/P ARTHROSCOPIC SURGERY KNEE for a total of 9 visit(s). Discharge Date: 02/15/24 Please see the following information for a summary of their discharge status. Subjective Subjective: Doing well ready for d/c Overall Improvement % Improvement: 80 Objective Objective/Function/Assessment: POSTURE: WFL EDEMA: ( joint line ) 40 CM2 NEURO: denies paresthesia/tingling SKIN: incision well approximate AROM: 0-125 degrees supine knee flexion right knee GAIT: reciprocal pattern MMT: ( peak force) Quads 56.8 ,hamstrings 36.8 ,hip flexion 29.8 ,hip abd 27.5 Goals Patient Goals: Improve Mobility, Improve Function, Decrease Pain, Alleviate Pain, Maneuver Steps and Improve ROM Goal 1:: Patient to be I with HEP for knee Goal Progress: Goal Met Goal 2:: Patient to improve AROM 0-125 degrees to improve stairs alternating Goal Progress: Goal Met Goal 3:: Patient to normalize gait Goal Progress: Goal Met Goal 4:: Patient to improve peak force quads/hams/hip by 5-10# to improve strength Goal Progress: Goal Met Goal 5:: Patient to improve LFES score by 5-10 points to improve function Goal Progress: Goal Met Plan Plan: D/C MET GOALS D/C Information Discharge Comments: GYM PROGRAM AND HEP d/c sentence: If there are questions or concerns regarding this patient's physical therapy, please feel free to call me at [phone]. Thank you for the referral of this patient. Sincerely, Danilo Ghosh, PT, Cert MDT, OCS Balance/Special Test Scores Improvement % Improvement: 80
== END 2024-02-15 19:00 | disposition home or self-care (01) ==
LOC: PT 08:00
PROVIDERS: PCP Internal Medicine; Referring Provider Orthopaedic Surgery Orthopaedic Surgery of the Spine; Visit Provider Orthopaedic Surgery Orthopaedic Surgery of the Spine
DX: M48.061 Spinal stenosis, lumbar region without neurogenic claudication (principal)
CPT/HCPCS: 97110; 97162; 97530

== ENCOUNTER → 2024-12-10 | Outpatient (CLI) | payer OTHER, SELFPAY ==
--- NOTE | 2024-12-10 07:34 | BI_ITS ---
PROCEDURE: SCRN MAMM (CAD)W/ERIBERTO BILAT REASON FOR EXAM: F, Age 59 y/o, no family history. Routine annual follow-up. TECHNIQUE: Bilateral screening digital breast tomosynthesis with 2D and 3D images. Computer aided detection. COMPARISON: Prior exam(s) dating back to December 07, 2023.. FINDINGS: The breasts are heterogeneously dense which may obscure small masses. Stable examination. No suspicious masses, areas of developing architectural distortion, or suspicious calcifications. BI/SCRN MAMM (CAD)W/ERIBERTO BILAT IMPRESSION: BI-RADS 1: NEGATIVE. RECOMMEND ANNUAL MAMMOGRAPHIC SCREENING. Follow-up code: Routine Follow-up The patient will be notified of the results by letter. Reading Location: [id number]
== END | disposition home or self-care (01) ==
PROVIDERS: PCP Internal Medicine; Referring Provider Internal Medicine; Visit Provider Internal Medicine
DX: Z12.31 Encounter for screening mammogram for malignant neoplasm of breast (principal)
CPT/HCPCS: 77063; 77067